=== PATIENT | male | born 1980 | race Two or more races ===

== ENCOUNTER 2016-11-25 18:05 | Emergency (ER) | payer BC ==
[~2016-11-25] VITALS: Ht 185.4 cm; Wt 129.3 kg
[2016-11-25] MEDS ORDERED: IV NORMAL SALINE 1,000ML 1,000 ML IV SCH (18:40)
[2016-11-25] MEDS ORDERED: ONDANSETRON PF 4 MG/2 ML VIAL. IV ONE (18:45)
[2016-11-25] MEDS ORDERED: 0.9 % SODIUM CHLORIDE 10 ML DISP.SYRIN. IV PRN (18:45)
--- NOTE | 2016-11-25 18:45 | PHYS DOC ---
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 He describes the pain as sharp stabbing waxing and waning. It is worse when he lays down and worse with foods and fluids better when he sits up. The pain would be again became relatively suddenly woke him from sleep he tried use a restroom which was not an issue produced no vomiting or diarrhea at that time but then again a few hours later began to retch. Sent to episode of nonbilious nonbloody vomiting. He's had no fevers no chills feeling sick to his stomach. He admits to no prior experience like this in the past which to no travel outside the country, no recent antibiotics, no sick contacts. Patient does not handle poultry, reptiles, or consume raw foods. Patient has not tried to treat himself with any medications. Patient admits that the pain comes in waves but never completely resolves and presently is a 6 of 10. There is no rash UTI symptoms or trauma associated with this particular complaint. He does drink alcohol on occasion but I'll call was not being seen last night. This patient is a history of hypertension and diabetes Review of Systems Review of Systems Constitutional: Denies fever or chills [] Eyes: Denies change in visual acuity, redness, or eye pain [] HENT: Denies nasal congestion or sore throat [] Respiratory: Denies cough or shortness of breath [] Cardiovascular: No additional information not addressed in HPI [] GI: Planes of diffuse abdominal pain with nausea and vomiting without bloody stools or diarrhea : Denies dysuria or hematuria [] Musculoskeletal: Denies back pain or joint pain [] Integument: Denies rash or skin lesions [] Neurologic: Denies headache, focal weakness or sensory changes [] Endocrine: Denies polyuria or polydipsia [] Allergies Allergies Allergies Coded Allergies Type Severity Reaction Last Updated Verified canagliflozin Allergy Unknown 11/25/16 Yes Physical Exam Physical Exam Vital signs reviewed normal limits. Constitutional: Well developed, well nourished, obese male in no acute distress nontoxic in appearance but obviously uncomfortable. HENT: Normocephalic, atraumatic, bilateral external ears normal, oropharynx moist, no oral exudates, nose normal. [] Eyes: PERRLA, EOMI, conjunctiva normal, no discharge. [] Neck: Normal range of motion, no tenderness, supple, no stridor. [] Cardiovascular:Heart rate regular rhythm, no murmur [] Lungs & Thorax: Bilateral breath sounds clear to auscultation [] Abdomen: He does have hyperactive bowel sounds tenderness in the r left flank without guarding rebound or organomegaly. Ration is no Ferrari's or McBurney's point tenderness palpation chest wall is soft without rash or tenderness to palpation Skin: Warm, dry, no erythema, no rash. [] Back: No tenderness, no CVA tenderness. [] Extremities: No tenderness, no cyanosis, no clubbing, ROM intact, no edema. [] Neurologic: Alert and oriented X 3, [] Psychologic: Patient is mildly anxious Current Patient Data Vital Signs Vital Signs Date Time Temp Pulse Resp B/P (MAP) Pulse Ox O2 Delivery O2 Flow Rate FiO2 11/25/16 18:31 97.6 91 18 100 Room Air Lab Results Laboratory Tests Test 11/25/16 19:10 11/25/16 19:15 Urine Collection Type Unknown Urine Color Yellow Urine Clarity Clear Urine pH 7.5 Urine Specific [place] 1.020 Urine Protein 30 mg/dl (NEG-TRACE) Urine Glucose (UA) Neg mg/dL (NEG) Urine Ketones (Stick) 15 mg/dL (NEG) Urine Blood Neg (NEG) Urine Nitrite Neg (NEG) Urine Bilirubin Neg (NEG) Urine Urobilinogen Dipstick 0.2 mg/dL (0.2 mg/dL) Urine Leukocyte Esterase Neg (NEG) Urine RBC Occ /HPF (0-2) Urine WBC Occ /HPF (0-4) Urine Squamous Epithelial Cells Few /LPF Urine Bacteria 0 /HPF (0-FEW) Urine Mucus Mod /LPF White Blood Count 12.0 x10^3/uL (4.0-11.0) H Red Blood Count 5.23 x10^6/uL (4.30-5.70) Hemoglobin 14.8 g/dL (13.0-17.5) Hematocrit 44.2 % (39.0-53.0) Mean Corpuscular Volume 84 fL (79-100) Mean Corpuscular Hemoglobin 28 pg (25-35) Mean Corpuscular Hemoglobin Concent 34 g/dL (31-37) Red Cell Distribution Width 14.3 % (11.5-14.5) Platelet Count 274 x10^3/uL (140-400) Neutrophils (%) (Auto) 73 % (31-73) Lymphocytes (%) (Auto) 18 % (24-48) L Monocytes (%) (Auto) 7 % (0-9) Eosinophils (%) (Auto) 2 % (0-3) Basophils (%) (Auto) 1 % (0-3) Neutrophils # (Auto) 8.8 x10^3uL (1.8-7.7) H Lymphocytes # (Auto) 2.1 x10^3/uL (1.0-4.8) Monocytes # (Auto) 0.8 x10^3/uL (0.0-1.1) Eosinophils # (Auto) 0.3 x10^3/uL (0.0-0.7) Basophils # (Auto) 0.1 x10^3/uL (0.0-0.2) Sodium Level 137 mmol/L (136-145) Potassium Level 4.3 mmol/L (3.5-5.1) Chloride Level 102 mmol/L (98-107) Carbon Dioxide Level 23 mmol/L (21-32) Anion Gap 12 (6-14) Blood Urea Nitrogen 12 mg/dL (8-26) Creatinine 0.9 mg/dL (0.7-1.3) Estimated GFR (Cockcroft-Gault) 96.6 BUN/Creatinine Ratio 13 (6-20) Glucose Level 166 mg/dL (70-99) H Calcium Level 9.1 mg/dL (8.5-10.1) Total Bilirubin 0.5 mg/dL (0.2-1.0) Aspartate Amino Transferase (AST) 20 U/L (15-37) Alanine Aminotransferase (ALT) 44 U/L (16-63) Alkaline Phosphatase 97 U/L (46-116) Creatine Kinase 81 U/L (39-308) Creatine Kinase MB (Mass) < 0.5 ng/mL (0.0-3.6) Creatine Kinase MB Relative Index 0.6 % (0-4) Troponin I Quantitative < 0.017 ng/mL (0-0.055) Total Protein 7.9 g/dL (6.4-8.2) Albumin 3.7 g/dL (3.4-5.0) Albumin/Globulin Ratio 0.9 (1.0-1.7) L Lipase 107 U/L (73-393) EKG EKG EKG timed 6:49 PM 11/25/2016 demonstrates normal sinus rhythm at this beat of 79. Or 174 which is normal limits patient has a normal QRS 90s milliseconds normal QTC at [address] segment or T-wave inversions consistent with pericardial ischemia or MT at this time. Area some left axis deviation noted on his EKG. Read by Dr. Ventura. [] Radiology/Procedures Radiology/Procedures [] IMAGING REPORT Signed PATIENT: LUIS MOTA ACCOUNT: [id number] : 1980 LOCATION: ER AGE: 36 SEX: M EXAM STATUS: REG ER ORD. PHYSICIAN: MARK VENTURA MD REASON: diffuse abdominal pain left flank PROCEDURE: CT ABDOMEN PELVIS WO CONTRAST CT Abdomen and Pelvis without contrast History: 476198.001 Abdominal pain, left flank pain, nausea and vomiting today. Technique: Noncontrast CT imaging was performed of the abdomen and pelvis. Multiplanar images are reviewed. Exposure: One or more of the following individualized dose reduction techniques were utilized for this examination: 1. Automated exposure control 2. Adjustment of the mA and/or kV according to patient size 3. Use of iterative reconstruction technique. Comparison: None Findings: There is no significant abnormality of the limited visualized lung bases.Accurate evaluation of abdominal visceral organs is limited without intravenous contrast. There is no obvious abnormality of the spleen, liver, or pancreas. Gallbladder is present without obvious intraluminal abnormality by CT. There is no adrenal nodularity. No urolithiasis or hydronephrosis is identified. No significantly enlarged nodes are identified. Accurate evaluation of bowel is limited without oral contrast. There is no significant free air, free fluid, bowel dilatation. Normal appendix is visualized there is spondylosis L5-S1. There is multilevel lumbar neural foramina compromise in part on development basis. There is likely at least mild lateral recess stenosis L4-5. Small sclerotic focus of the left femoral head could be related to a bone island. Impression: 1. There is no hydronephrosis or urolithiasis, no significant acute abnormality identified on this noncontrast exam. 2. There is multilevel lumbar neural foramina compromise in part on a developmental basis. Electronically signed by: Minh Boo MD (11/25/2016 7:10 PM) Course & Med Decision Making Course & Med Decision Making Pertinent Labs and Imaging studies reviewed. (See chart for details) she is vital signs, nursing notes and initial history and physical were reviewed. Patient at approximately 8 or 9 PM abdominal pain is markedly better with fluids antiemetics and pain control here in the emergency department without focal tenderness noted in any particular area of his abdomen. It is no guarding rebound or organomegaly. Reviewed CAT scan with him at bedside and diagnosed without significant surgical, patient on CAT scan. There is no evidence of appendicitis, urinary tract infection, pyelonephritis, pancreatitis, cholecystitis, cholelithiasis, small bowel obstruction, diverticulitis, or kidney stone. Reviewed the completed labs that are back now there is no obvious signs of pancreatitis, patient does not have a white count or left shift patient family that discussed likelihood that this is a nausea and vomiting illness secondary to a virus. I scrubbed determine gastroenteritis to him and I told him our goal is to breath and supportive care. [] Dragon Disclaimer Dragon Disclaimer This chart was dictated in whole or in part using Voice Recognition software in a busy, high-work load, and often noisy Emergency Department environment. It may contain unintended and wholly unrecognized errors or omissions. Departure Departure: Impression: Primary Impression: Abdominal pain Additional Impression: Nausea and vomiting Disposition: 01 HOME, SELF-CARE Condition: IMPROVED Referrals: MITCHEL ARANGO MD (PCP) Patient Instructions: Abdominal Pain (Nonspecific), Nausea and Vomiting, Viral Gastroenteritis Additional Instructions: Diagnoses abdominal pain and nausea and vomiting. There is no evidence of appendicitis at this time but this did not mean that they cannot develop in the future. We talked little bit about gastroenteritis, this could be both a bacterial infection or viral infection we can tell. I will provide supportive care and treatment and have a follow-up with your primary care doctor. Please return for any new or increasing symptoms or feel any questions or concerns that I answered. please return for any blood in her stool blood in her vomit or fever greater than 102.2. please continue to try to hydrate Scripts Ondansetron (ZOFRAN ODT) 8 Mg Tab.rapdis 8 MG PO TID for 7 Days Prov: MARK VENTURA MD 11/25/16 Dicyclomine Hcl (BENTYL) 10 Mg Capsule 1 CAP PO TID, #15 CAP.EC Prov: MARK VENTURA MD 11/25/16 Problem Qualifiers MARK VENTURA MD November 25, 2016 18:45
--- NOTE | 2016-11-25 19:13 | RAD ---
CT Abdomen and Pelvis without contrast History: 068817.001 Abdominal pain, left flank pain, nausea and vomiting today. Technique: Noncontrast CT imaging was performed of the abdomen and pelvis. Multiplanar images are reviewed. Exposure: One or more of the following individualized dose reduction techniques were utilized for this examination: 1. Automated exposure control 2. Adjustment of the mA and/or kV according to patient size 3. Use of iterative reconstruction technique. Comparison: None Findings: There is no significant abnormality of the limited visualized lung bases.Accurate evaluation of abdominal visceral organs is limited without intravenous contrast. There is no obvious abnormality of the spleen, liver, or pancreas. Gallbladder is present without obvious intraluminal abnormality by CT. There is no adrenal nodularity. No urolithiasis or hydronephrosis is identified. No significantly enlarged nodes are identified. Accurate evaluation of bowel is limited without oral contrast. There is no significant free air, free fluid, bowel dilatation. Normal appendix is visualized there is spondylosis L5-S1. There is multilevel lumbar neural foramina compromise in part on development basis. There is likely at least mild lateral recess stenosis L4-5. Small sclerotic focus of the left femoral head could be related to a bone island. Impression: 1. There is no hydronephrosis or urolithiasis, no significant acute abnormality identified on this noncontrast exam. 2. There is multilevel lumbar neural foramina compromise in part on a developmental basis. Electronically signed by: Minh Boo MD (11/25/2016 7:10 PM)
[2016-11-25] MEDS: HYDROmorphone PF 1 MG/ML DISP.SYRIN IV/SQ PRN ×2 (19:33→20:44)
[2016-11-25 19:44] LABS: BASO # 0.1 x10^3/uL (0.0-0.2); BASO % 1 % (0-3); EOS # 0.3 x10^3/uL (0.0-0.7); EOS % 2 % (0-3); HEMATOCRIT 44.2 % (39.0-53.0); HEMOGLOBIN 14.8 g/dL (13.0-17.5); LYMPH # 2.1 x10^3/uL (1.0-4.8); LYMPH % 18 % (24-48); MEAN CORPUSCULAR HEMOGLOBIN 28 pg (25-35); MEAN CORPUSCULAR HGB CONC 34 g/dL (31-37); MEAN CORPUSCULAR VOLUME 84 fL (79-100); MONO # 0.8 x10^3/uL (0.0-1.1); MONO % 7 % (0-9); NEUT # 8.8 x10^3uL (1.8-7.7); NEUT % 73 % (31-73); PLATELET COUNT 274 x10^3/uL (140-400); RED BLOOD COUNT 5.23 x10^6/uL (4.30-5.70); RED CELL DISTRIBUTION WIDTH 14.3 % (11.5-14.5)
[2016-11-25 20:08] LABS: ALBUMIN 3.7 g/dL (3.4-5.0); ALBUMIN/GLOBULIN RATIO 0.9 (1.0-1.7); ALK PHOS 97 U/L (46-116); ALT (SGPT) 44 U/L (16-63); ANION GAP 12 (6-14); AST (SGOT) 20 U/L (15-37); BLOOD UREA NITROGEN 12 mg/dL (8-26); BUN/CREATININE RATIO 13 (6-20); CALCIUM 9.1 mg/dL (8.5-10.1); CARBON DIOXIDE 23 mmol/L (21-32); CHLORIDE 102 mmol/L (98-107); CREATINE KINASE 81 U/L (39-308); CREATININE 0.9 mg/dL (0.7-1.3); GFR 96.6; GLUCOSE 166 mg/dL (70-99); LIPASE 107 U/L (73-393); POTASSIUM 4.3 mmol/L (3.5-5.1); SODIUM 137 mmol/L (136-145); TOTAL BILIRUBIN 0.5 mg/dL (0.2-1.0); TOTAL PROTEIN 7.9 g/dL (6.4-8.2)
[2016-11-25 20:15] LABS: BILIRUBIN,URINE NEG (NEG); CLARITY,URINE CLEAR; COLOR,URINE YELLOW; GLUCOSE,URINE NEG (NEG); NITRITE,URINE NEG (NEG); UROBILINOGEN,URINE 0.2 mg/dL (0.2 mg/dL)
[2016-11-25 20:17] LABS: BACTERIA,URINE 0 /HPF (0-FEW); RBC,URINE OCC /HPF (0-2); SQUAMOUS EPITHELIAL CELL,UR FEW /LPF; WBC,URINE OCC /HPF (0-4)
[2016-11-25] MEDS ORDERED: ONDA8TAB12 PO (20:35)
[2016-11-25] MEDS ORDERED: DICY10CA53 PO (20:35)
[2016-11-25 20:46] VITALS: BP 133/73
--- NOTE | 2016-11-26 06:44 | EKG ---
[address] [address] Test Date: 2016-11-25 Test Time: 18:49:23 Pat Name: LUIS MOTA Department: Room: Gender: M [employer] As[employer]er: MARIA T : 1980 Requested By: MARK VENTURA Order Number: [id number] Reading MD: Drake Prabhakar Measurements Intervals [facility] Rate: 79 P: 29 ME: 174 QRS: 0 QRSD: 90 T: 125 QT: 364 QTc: 418 Interpretive Statements SINUS RHYTHM NON-SPECIFIC ST/T CHANGES Electronically Signed On 11-26-2016 10:44:32 CDT by Drake Prabhakar
== END 2016-11-25 20:48 | disposition home or self-care (01) ==
LOC: ER 18:05
DX: R10.84 Generalized abdominal pain (principal); R11.2 Nausea with vomiting, unspecified; E11.9 Type 2 diabetes mellitus without complications; I10 Essential (primary) hypertension; Z88.8 Allergy status to other drugs, medicaments and biological substances
CPT/HCPCS: 36415; 74176; 80053; 81001; 82553; 83690; 84484; 85027; 93005; 96361; 96374; 96375; 96376; 99285; J1170; J2405; J7030

== ENCOUNTER 2017-04-09 00:09 | Emergency (ER) | payer BC ==
[~2017-04-09] VITALS: Ht 185.4 cm; Wt 129.3 kg
[~2017-04-09 00:09] MED LIST: DICY10CA53 PO; ONDA8TAB12 PO
[2017-04-09 00:10] VITALS: BP 166/117
[2017-04-09] MEDS ORDERED: LIDO:MAALOX 1:1 20 ML SINGLE DOSE ONE (00:20)
--- NOTE | 2017-04-09 00:34 | PHYS DOC ---
Past History Past Medical History: Diabetes, Hypertension Past Surgical History: Other Additional Past Surgical Histo: prior pilonidal cyst Smoking: Non-smoker Alcohol Use: Occasionally Drug Use: None Adult General Chief Complaint Chief Complaint: MUSCLE SPASM/CRAMP [facility] HPI Patient is a 37 year old M who presents with intermittent cramping upper abdominal pain associated with nausea and loose stools. He feels that his symptoms started about 2 days ago. He feels that his symptoms are exacerbated by eating particularly greasy or spicy foods. He has had similar symptoms in the past that were less severe. He denies fevers sweats chills or any other flulike symptoms. He feels that Tums relieve his symptoms. He has been unable to hold down fluids without difficulty. Review of Systems Review of Systems Constitutional: Denies fever or chills [] Eyes: Denies change in visual acuity, redness, or eye pain [] HENT: Denies nasal congestion or sore throat [] Respiratory: Denies cough or shortness of breath [] Cardiovascular: No additional information not addressed in HPI [] GI: Negative except history of present illness : Denies dysuria or hematuria [] Musculoskeletal: Denies back pain or joint pain [] Integument: Denies rash or skin lesions [] Neurologic: Denies headache, focal weakness or sensory changes [] Endocrine: Denies polyuria or polydipsia [] Family History Family History No family history of heart disease. History of liver cancer Current Medications Current Medications Medications reviewed Allergies Allergies Allergies Coded Allergies Type Severity Reaction Last Updated Verified canagliflozin Allergy Unknown 11/25/16 Yes Physical Exam Physical Exam Constitutional: Well developed, well nourished, no acute distress, non-toxic appearance. [] HENT: Normocephalic, atraumatic Eyes: PERRLA, EOMI, conjunctiva normal, no discharge. [] Neck: Normal range of motion, no tenderness, supple, no stridor. [] Cardiovascular:Heart rate regular rhythm, no murmur [] Lungs & Thorax: Bilateral breath sounds clear to auscultation [] Abdomen: Bowel sounds normal, soft, no masses, no pulsatile masses. Generalized abdominal pain worse in the epigastric region Skin: Warm, dry, no erythema, no rash. [] Back: No tenderness, no CVA tenderness. [] Extremities: No tenderness, no cyanosis, no clubbing, ROM intact, no edema. [] Neurologic: Alert and oriented X 3, normal motor function, normal sensory function, no focal deficits noted. [] Psychologic: Affect normal, judgement normal, mood normal. [] Current Patient Data Vital Signs Normal vital signs. Please review nursing documentation for specifics Lab Results Laboratory Tests Test 04/09/17 00:40 White Blood Count 9.5 x10^3/uL (4.0-11.0) Red Blood Count 5.36 x10^6/uL (4.30-5.70) Hemoglobin 15.4 g/dL (13.0-17.5) Hematocrit 45.1 % (39.0-53.0) Mean Corpuscular Volume 84 fL (79-100) Mean Corpuscular Hemoglobin 29 pg (25-35) Mean Corpuscular Hemoglobin Concent 34 g/dL (31-37) Red Cell Distribution Width 14.7 % (11.5-14.5) Platelet Count 296 x10^3/uL (140-400) Neutrophils (%) (Auto) 54 % (31-73) Lymphocytes (%) (Auto) 34 % (24-48) Monocytes (%) (Auto) 7 % (0-9) Eosinophils (%) (Auto) 4 % (0-3) Basophils (%) (Auto) 0 % (0-3) Neutrophils # (Auto) 5.1 x10^3uL (1.8-7.7) Lymphocytes # (Auto) 3.2 x10^3/uL (1.0-4.8) Monocytes # (Auto) 0.7 x10^3/uL (0.0-1.1) Eosinophils # (Auto) 0.4 x10^3/uL (0.0-0.7) Basophils # (Auto) 0.0 x10^3/uL (0.0-0.2) Sodium Level 138 mmol/L (136-145) Potassium Level 3.8 mmol/L (3.5-5.1) Chloride Level 102 mmol/L (98-107) Carbon Dioxide Level 24 mmol/L (21-32) Anion Gap 12 (6-14) Blood Urea Nitrogen 14 mg/dL (8-26) Creatinine 1.0 mg/dL (0.7-1.3) Estimated GFR (Cockcroft-Gault) 85.0 BUN/Creatinine Ratio 14 (6-20) Glucose Level 200 mg/dL (70-99) Calcium Level 9.0 mg/dL (8.5-10.1) Total Bilirubin 0.3 mg/dL (0.2-1.0) Aspartate Amino Transf (AST/SGOT) 18 U/L (15-37) Alanine Aminotransferase (ALT/SGPT) 53 U/L (16-63) Alkaline Phosphatase 109 U/L (46-116) Total Protein 8.3 g/dL (6.4-8.2) Albumin 3.6 g/dL (3.4-5.0) Albumin/Globulin Ratio 0.8 (1.0-1.7) Lipase 213 U/L (73-393) EKG EKG [] Radiology/Procedures Radiology/Procedures US Gallbladder - No acute disease pre radiology report Course & Med Decision Making Course & Med Decision Making Pertinent Labs and Imaging studies reviewed. (See chart for details) Massimo symptoms did improve with IV fluids and supportive care. He was strongly advised to return to the emergency room if he develops new or worsening symptoms. Dragon Disclaimer Dragon Disclaimer This chart was dictated in whole or in part using Voice Recognition software in a busy, high-work load, and often noisy Emergency Department environment. It may contain unintended and wholly unrecognized errors or omissions. Departure Departure: Impression: Primary Impression: Gastroesophageal reflux Disposition: 01 HOME, SELF-CARE Condition: STABLE Referrals: MITCHEL ARANGO MD (PCP) Patient Instructions: Diet for Gastroesophageal Reflux Disease, Adult, Gastroesophageal Reflux Disease, Adult Additional Instructions: Massimo was seen in the emergency department for abdominal pain. No emergency medical condition was found on history or physical exam. He did have normal labs and imaging. He was given IV fluids and medication to manage his symptoms. His findings are most consistent with gastroesophageal reflux disease or GERD. He was given education on diet modifications. He was also given a prescription for an acid medtronics technician and Carafate. Is advised follow-up with his primary care doctor in the next 1-2 weeks for further management. Scripts Sucralfate (CARAFATE) 1 Gm Tablet 1 TAB PO QID for 14 Days, #56 TAB 1 Refill Prov: SKYE LAWTON MD 04/09/17 Omeprazole (OMEPRAZOLE) 20 Mg Capsule.dr 1 CAP PO DAILY for 14 Days, #14 CAP 5 Refills Prov: SKYE LAWTON MD 04/09/17 Problem Qualifiers Primary Impression: Gastroesophageal reflux Esophagitis presence: esophagitis presence not specified Qualified Codes: K21.9 - Gastro-esophageal reflux disease without esophagitis SKYE LAWTON MD Apr 09, 2017 00:34
[2017-04-09] MEDS ORDERED: IV NORMAL SALINE 1,000ML 1,000 ML IV ONE (01:00)
[2017-04-09] MEDS ORDERED: LIDO:MAALOX 1:1 20 ML SINGLE DOSE PO ONE (01:00)
[2017-04-09 01:05] LABS: BASO % 0 % (0-3); EOS # 0.4 x10^3/uL (0.0-0.7); EOS % 4 % (0-3); HEMATOCRIT 45.1 % (39.0-53.0); HEMOGLOBIN 15.4 g/dL (13.0-17.5); LYMPH # 3.2 x10^3/uL (1.0-4.8); LYMPH % 34 % (24-48); MEAN CORPUSCULAR HEMOGLOBIN 29 pg (25-35); MEAN CORPUSCULAR HGB CONC 34 g/dL (31-37); MEAN CORPUSCULAR VOLUME 84 fL (79-100); MONO # 0.7 x10^3/uL (0.0-1.1); MONO % 7 % (0-9); NEUT # 5.1 x10^3uL (1.8-7.7); NEUT % 54 % (31-73); PLATELET COUNT 296 x10^3/uL (140-400); RED BLOOD COUNT 5.36 x10^6/uL (4.30-5.70); RED CELL DISTRIBUTION WIDTH 14.7 % (11.5-14.5); WHITE BLOOD COUNT 9.5 x10^3/uL (4.0-11.0)
[2017-04-09 01:14] LABS: ALBUMIN 3.6 g/dL (3.4-5.0); ALBUMIN/GLOBULIN RATIO 0.8 (1.0-1.7); POTASSIUM 3.8 mmol/L (3.5-5.1); TOTAL BILIRUBIN 0.3 mg/dL (0.2-1.0); TOTAL PROTEIN 8.3 g/dL (6.4-8.2)
[2017-04-09] MEDS ORDERED: KETOROLAC 30 MG/ML VIAL. ONE (02:09)
[2017-04-09] MEDS ORDERED: KETOROLAC 30 MG/ML VIAL. IV ONE (02:15)
--- NOTE | 2017-04-09 02:22 | RAD ---
INDICATION: RUQ PAIN
COMPARISON: None. TECHNIQUE: Grayscale and color ultrasound images obtained through the abdomen. FINDINGS: Aorta/IVC: Poorly seen Pancreas: Poorly seen Liver: Echogenic Gallbladder: Partially contracted. No definite gallstones seen. Common Bile Duct: Not dilated. Right Kidney: No hydronephrosis. IMPRESSION: Partially contracted gallbladder without bile duct dilation. Liver is echogenic. Nonspecific but can be seen with fatty infiltration. Electronically signed by: Jordin Hayes MD (04/09/2017 2:19 AM) [facility]
[2017-04-09] MEDS ORDERED: SUCR1TAB35 PO (02:29)
[2017-04-09] MEDS ORDERED: OMEP20CA9 PO (02:29)
== END 2017-04-09 02:40 | disposition home or self-care (01) ==
LOC: ER 00:09
DX: K21.9 Gastro-esophageal reflux disease without esophagitis (principal); I10 Essential (primary) hypertension; E11.9 Type 2 diabetes mellitus without complications; Z88.8 Allergy status to other drugs, medicaments and biological substances
CPT/HCPCS: 36415; 76705; 80053; 83690; 85025; 96361; 96374; 99285; J1885; J7030

== ENCOUNTER 2018-09-29 16:27 | Emergency (ER) | payer BC ==
[~2018-09-29] VITALS: Ht 185.4 cm; Wt 129.3 kg
[~2018-09-29 16:27] MED LIST changes: +OMEP20CA9 PO; +SUCR1TAB35 PO
--- NOTE | 2018-09-29 17:00 | PHYS DOC ---
Past History Past Medical History: Diabetes, Hypertension Past Surgical History: Other Additional Past Surgical Histo: prior pilonidal cyst Smoking: Non-smoker Alcohol Use: Occasionally Drug Use: None Adult General Chief Complaint Chief Complaint: Neck Pain HPI HPI 38-year-old male presents with right shoulder blade pain, right neck pain, right hand tingling. The patient is an intermittent pain in his neck and shoulder blade for a few weeks. He presented to his PCP today who advised he come to the emergency room. His PCP is out of the office. The patient tells me this round of pain started on Friday after he woke up. It persisted throughout the day Friday. The patient did go play softball on Friday. Yesterday and today the pain has continued and now when he turns his head the wrong way or extends it, he gets a tingling sensation in the right hand. He has not had this before. Patient denies any weakness. Review of Systems Review of Systems Constitutional: Denies fever or chills [] Eyes: Denies change in visual acuity, redness, or eye pain [] HENT: Denies nasal congestion or sore throat [] Respiratory: Denies cough or shortness of breath [] Cardiovascular: No additional information not addressed in HPI [] GI: Denies abdominal pain, nausea, vomiting, bloody stools or diarrhea [] : Denies dysuria or hematuria [] Musculoskeletal: Cervical pain, right shoulder blade pain[] Integument: Denies rash or skin lesions [] Neurologic: Denies headache, focal weakness or sensory changes [] Endocrine: Denies polyuria or polydipsia [] All other systems were reviewed and found to be within normal limits, except as documented in this note. Allergies Allergies Allergies Coded Allergies Type Severity Reaction Last Updated Verified canagliflozin Allergy Unknown 11/25/16 Yes Physical Exam Physical Exam Constitutional: Well developed, well nourished, no acute distress, non-toxic appearance. [] HENT: Normocephalic, atraumatic, bilateral external ears normal, oropharynx moist, no oral exudates, nose normal. [] Eyes: PERRLA, EOMI, conjunctiva normal, no discharge. [] Neck: Normal range of motion, no tenderness, supple, no stridor. [] Cardiovascular:Heart rate regular rhythm, no murmur [] Lungs & Thorax: Bilateral breath sounds clear to auscultation [] Abdomen: Bowel sounds normal, soft, no tenderness, no masses, no pulsatile masses. [] Skin: Warm, dry, no erythema, no rash. [] Back: Right-sided paraspinal muscle spasm and tenderness.[] Extremities: No tenderness, no cyanosis, no clubbing, ROM intact, no edema. [] Neurologic: Alert and oriented X 3, normal motor function, normal sensory function, no focal deficits noted. [] Psychologic: Affect normal, judgement normal, mood normal. [] EKG EKG [] Radiology/Procedures Radiology/Procedures [] Impressions: Indication: Neck discomfort. TECHNIQUE: Multiple views of the cervical spine COMPARISON: None FINDINGS: Cervical spine demonstrates loss of normal cervical lordosis. This could be due to muscle spasm or positioning. Atlantoaxial joint interval is preserved. No compression deformities. Small anterior ridging osteophytes seen at C5-C6 and C6-C7. Facet joints are in normal anatomic alignment without arthropathy. Prevertebral soft tissues within normal limits. Visualized lung apices are clear. IMPRESSION: Evidence of onset of degenerative disc disease at C5-C6 and C6-C7. Electronically signed by: Mckinley Jones DO (09/29/2018 5:36 PM) [facility] DICTATED AND SIGNED BY: MCKINLEY JONES DO DATE: 09/29/181735 CC: CHRISSY RAI DO; SKYE DUNCAN MD ~ Examination: 2 views of the right shoulder HISTORY: History of right shoulder pain or discomfort COMPARISON: None available. FINDINGS: The humerus head is within the glenoid. There is no acute fracture or dislocation identified. IMPRESSION: No acute osseous findings. Electronically signed by: Jason Vogt MD (09/29/2018 5:44 PM) [facility] DICTATED AND SIGNED BY: JASON VOGT MD DATE: 09/29/181743 CC: CHRISSY RAI DO; SKYE DUNCAN MD ~ Course & Med Decision Making Course & Med Decision Making Pertinent Labs and Imaging studies reviewed. (See chart for details) Patient has some degenerative change at the C5-C6 as well as a C6-C7 areas. I suspect the patient's symptoms are due to a bulging or herniated disc. I have given him Toradol IM in the ED. I will discharge him with [place] 5/325 as well as a 10 day course of prednisone. I have advised that he follow-up with his primary care physician and consider MRI. He is stable for discharge at this time. [] Dragon Disclaimer Dragon Disclaimer This electronic medical record was generated, in whole or in part, using a voice recognition dictation system. Departure Departure: Impression: Primary Impression: Cervical disc disorder at C5-C6 level with radiculopathy Additional Impression: Cervical disc disorder at C6-C7 level with myelopathy Disposition: 01 HOME, SELF-CARE Condition: STABLE Referrals: SKYE DUNCAN MD (PCP) Patient Instructions: Degenerative Disk Disease Scripts Prednisone (PREDNISONE) 10 Mg Tablet 10 MG PO UD for PREDNISONE TAPER, #30 TAB 0 Refills Take 4 tablets by mouth once a day for 3 days, then take 3 tablets by mouth once a day for 3 days, then take 2 tablet by mouth once a day for 3 days, then take 1 tablet by mouth daily x 3 days, then stop. Prov: CHRISSY RAI DO 09/29/18 Hydrocodone Bit/Acetaminophen (NOR[place] 5-325 TABLET) 1 Each Tablet 1 TAB PO PRN Q6HRS PRN for PAIN, #14 TAB 0 Refills Prov: CHRISSY RAI DO 09/29/18 Problem Qualifiers CHRISSY RAI DO Sep 29, 2018 17:00
--- NOTE | 2018-09-29 17:39 | RAD ---
Indication: Neck discomfort. TECHNIQUE: Multiple views of the cervical spine COMPARISON: None FINDINGS: Cervical spine demonstrates loss of normal cervical lordosis. This could be due to muscle spasm or positioning. Atlantoaxial joint interval is preserved. No compression deformities. Small anterior ridging osteophytes seen at C5-C6 and C6-C7. Facet joints are in normal anatomic alignment without arthropathy. Prevertebral soft tissues within normal limits. Visualized lung apices are clear. IMPRESSION: Evidence of onset of degenerative disc disease at C5-C6 and C6-C7. Electronically signed by: Mckinley Jones DO (09/29/2018 5:36 PM) [facility]
--- NOTE | 2018-09-29 17:47 | RAD ---
Examination: 2 views of the right shoulder HISTORY: History of right shoulder pain or discomfort COMPARISON: None available. FINDINGS: The humerus head is within the glenoid. There is no acute fracture or dislocation identified. IMPRESSION: No acute osseous findings. Electronically signed by: Jason Vogt MD (09/29/2018 5:44 PM) [facility]
[2018-09-29] MEDS ORDERED: KETOROLAC 60 MG/2 ML VIAL. IM ONE (18:00)
[2018-09-29] MEDS ORDERED: PRED-220 PO (18:06)
[2018-09-29] MEDS ORDERED: HYDR-3165 PO (18:06)
[2018-09-29 18:24] VITALS: BP 158/78
== END 2018-09-29 18:25 | disposition home or self-care (01) ==
LOC: ER 16:27
DX: M50.122 Cervical disc disorder at C5-C6 level with radiculopathy (principal); M50.123 Cervical disc disorder at C6-C7 level with radiculopathy; M25.511 Pain in right shoulder; E11.9 Type 2 diabetes mellitus without complications; I10 Essential (primary) hypertension; Z88.8 Allergy status to other drugs, medicaments and biological substances
CPT/HCPCS: 72040; 73030; 96372; 99283; J1885

== ENCOUNTER 2021-06-21 14:54 | Emergency (ER) | payer BC ==
[~2021-06-21] VITALS: Ht 185.4 cm; Wt 125.6 kg
[~2021-06-21 14:54] MED LIST changes: +HYDR-3165 PO; +OMEP20CA16 PO; -OMEP20CA9 PO; +PRED-220 PO
[2021-06-21] MEDS ORDERED: LABETALOL 20 MG/4 ML DISP.SYRIN. IVP ONE (15:45)
--- NOTE | 2021-06-21 15:50 | PHYS DOC ---
Past History Past Medical History: Hypertension (ANDREW MYLES APRN) Past Surgical History: Gastric Bypass, Other Additional Past Surgical Histo: prior pilonidal cyst (ANDREW MYLES APRN) Smoking: Non-smoker Alcohol Use: None Drug Use: None (ANDREW MYLES APRN) Adult General Chief Complaint Chief Complaint: HYPERTENSION HPI HPI Patient is a male with previous history of hypertension who presents to the ED today from Dr. Schmid's office. Patient states he had gone to the doctor's office to be evaluated for ear pain and sore throat which has been going on for 3 to 4 days. He states while at the doctor's office they took his blood pressure which was elevated and he had an abnormal EKG and was sent to the ED. He states he used to be on lisinopril but 4 years ago had gastric sleeve, he states he lost a lot of weight and was taken off blood pressure medicines. He states he never followed up with a doctor after that. Patient denies any chest pain or shortness of breath. Reports several family members have similar symptoms. He states he does not believe he is COVID19. He states he was vaccinated diagnosed COVID19. (ANDREW MYLES [employer]IVER BOX TOE) Review of Systems Review of Systems Constitutional: Denies fever or chills [] Eyes: Denies change in visual acuity, redness, or eye pain [] HENT: Reports sore throat and bilateral ear pain, denies nasal congestion Respiratory: Denies cough or shortness of breath [] Cardiovascular: Reports high blood pressure and abnormal EKG GI: Denies abdominal pain, nausea, vomiting, bloody stools or diarrhea [] : Denies dysuria or hematuria [] Musculoskeletal: Denies back pain or joint pain [] Integument: Denies rash or skin lesions [] Neurologic: Denies headache, focal weakness or sensory changes [] All other systems were reviewed and found to be within normal limits, except as documented in this note. (ANDREW MYLES APRN) Current Medications Current Medications Current Medications Medications (Trade) Dose Ordered Sig/Aiden Start Time Stop Time Status Last Admin Dose Admin Labetalol HCl (Normodyne) 10 mg 1X ONCE 06/21/21 15:45 06/21/21 15:46 UNV (ANDREW MYLES [employer]IVER BOX TOE) Allergies Allergies Allergies Coded Allergies Type Severity Reaction Last Updated Verified canagliflozin Allergy Unknown 11/25/16 Yes (ANDREW MYLES [employer] TOE) Physical Exam Physical Exam Constitutional: Well developed, well nourished, no acute distress, non-toxic appearance. [] HENT: Normocephalic, atraumatic, bilateral external ears normal, oropharynx moist, no oral exudates, nose normal. Bilateral TM are mildly injected, mild erythema to posterior pharynx Eyes: PERRLA, EOMI, conjunctiva normal, no discharge. [] Neck: Normal range of motion, no tenderness, supple, no stridor. [] Cardiovascular:Heart rate regular rhythm, no murmur [] Lungs & Thorax: Bilateral breath sounds clear to auscultation [] Abdomen: Bowel sounds normal, soft, no tenderness, no masses, no pulsatile masses. [] Skin: Warm, dry, no erythema, no rash. [] Back: No tenderness, no CVA tenderness. [] Extremities: No tenderness, no cyanosis, no clubbing, ROM intact, no edema. [] Neurologic: Alert and oriented X 3, normal motor function, normal sensory function, no focal deficits noted. [] Psychologic: Affect normal, judgement normal, mood normal. [] (ANDREW MYLES Kimberly [employer] TOE) Current Patient Data Vital Signs Vital Signs Date Time Temp Pulse Resp B/P (MAP) Pulse Ox O2 Delivery O2 Flow Rate FiO2 06/21/21 15:32 98.0 110 18 197/117 (143) 99 Room Air (ANDREW MYLES [employer]IVER [employer]OX TOE) EKG EKG [address] Collado sinus tachycardia heart rate 107 inverted T waves in aVR, aVL, V2, V5, V6. No STEMI similar T wave inversions noted on EKG done on November 25, 2016 though more pronounced right now. [] [address] Collado sinus rhythm heart rate 98 inverted T waves in aVR, aVL, V2, V5, V6. No STEMI similar T wave inversions noted on EKG done on November 25, 2016 though more pronounced right now. [] (AMIAlexisANDREW Kimberly [employer] TOE) Heart Score C/O Chest Pain: N/A Risk Factors: Risk Factors: DM, Current or recent (<one month) smoker, HTN, HLP, family history of CAD, obesity. Risk Scores: Risk Factors: DM, Current or recent (<one month) smoker, HTN, HLP, family history of CAD, obesity. (ANDREW MYLES APRN) Course & Med Decision Making Course & Med Decision Making Pertinent Labs and Imaging studies reviewed. (See chart for details) This is a 41-year-old male patient presenting to the ED today from the doctor's office to be evaluated for high blood pressure and abnormal EKG. Patient went to the doctor's office for ear pain and sore throat. Blood pressure on arrival to the ED was 191 over 117 with a heart rate of 107. EKG with sinus rhythm and noted for inverted T waves which are more pronounced but have been in the previous EKG CBC no acute findings, CMP noted for glucose of 214, normal anion gap, normal CO2. Patient was discharged to home. He was restarted on lisinopril and instructed to follow-up with PCP next week. Also provided insurance verification rep for the EKG T inversions follow-up. Amoxicillin for otitis media. (ANDREW MYLES APRN) Dragon Disclaimer Dragon Disclaimer This electronic medical record was generated, in whole or in part, using a voice recognition dictation system. (ANDREW MYLES APRN) Departure Departure: Impression: Primary Impression: Accelerated hypertension Additional Impressions: Hyperglycemia Otitis media Acute pharyngitis Disposition: HOME / SELF CARE / HOMELESS Condition: STABLE Referrals: SKYE DUNCAN MD (PCP) follow up in one week CHACORTA ROBERSON MD follow up in one week Patient Instructions: Hyperglycemia, Hypertension, Otitis Media, Adult Additional Instructions: You were evaluated in the emergency room, your blood pressure was high. We restarted you on lisinopril. Take it as prescribed. Your blood glucose is also running high at 214. Follow up with your primary care doctor. We also provided you a insurance verification rep to follow-up with. Come back to the ED at any point symptoms worsen Scripts Amoxicillin (AMOXICILLIN) 875 Mg Tablet 1 TAB PO BID, #14 TAB Prov: ANDREW MYLES APRN 06/21/21 Lisinopril (LISINOPRIL) 10 Mg Tablet 1 TAB PO DAILY, #14 TAB 5 Refills Prov: ANDREW MYLES APRN 06/21/21 Attending Signature Attending Signature I have participated in the care of this patient and I have reviewed and agree with all pertinent clinical information above including history, exam, and recommendations. (FRAN ANTONIO MD) Problem Qualifiers Additional Impressions: Otitis media Otitis media type: other nonsuppurative Chronicity: acute Laterality: bilateral Recurrence: non-recurrent Qualified Codes: H65.193 - Other acute nonsuppurative otitis media, bilateral Acute pharyngitis Pharyngitis/tonsillitis etiology: unspecified etiology Qualified Codes: J02.9 - Acute pharyngitis, unspecified ANDREW MYLES APRN Jun 21, 2021 15:50 FRAN ANTONIO MD Jun 22, 2021 21:04
--- NOTE | 2021-06-21 16:10 | EKG ---
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
[2021-06-21 17:23] VITALS: BP 169/113
[2021-06-21 17:57] LABS: CALCIUM 8.9 mg/dL (8.5-10.1); GFR 83.2
[2021-06-21 17:58] LABS: BASO # 0.1 x10^3/uL (0.0-0.2); BASO % 1 % (0-3); EOS # 0.3 x10^3/uL (0.0-0.7); EOS % 4 % (0-3); HEMATOCRIT 42.6 % (39.0-53.0); HEMOGLOBIN 14.1 g/dL (13.0-17.5); LYMPH # 2.5 x10^3/uL (1.0-4.8); LYMPH % 33 % (24-48); MEAN CORPUSCULAR HEMOGLOBIN 29 pg (25-35); MEAN CORPUSCULAR HGB CONC 33 g/dL (31-37); MEAN CORPUSCULAR VOLUME 87 fL (79-100); MONO # 0.6 x10^3/uL (0.0-1.1); MONO % 9 % (0-9); NEUT % 53 % (31-73); PLATELET COUNT 266 x10^3/uL (140-400); RED BLOOD COUNT 4.89 x10^6/uL (4.30-5.70); RED CELL DISTRIBUTION WIDTH 13.8 % (11.5-14.5); WHITE BLOOD COUNT 7.6 x10^3/uL (4.0-11.0)
[2021-06-21 18:08] LABS: ALBUMIN 3.6 g/dL (3.4-5.0); ALBUMIN/GLOBULIN RATIO 0.8 (1.0-1.7); MAGNESIUM 2.2 mg/dL (1.8-2.4); TOTAL BILIRUBIN 0.3 mg/dL (0.2-1.0); TOTAL PROTEIN 8.2 g/dL (6.4-8.2)
[2021-06-21] MEDS ORDERED: LISI10TA16 PO (18:37)
--- NOTE | 2021-06-21 18:38 | EKG ---
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
[2021-06-21] MEDS ORDERED: AMOX875T PO (18:59)
[2021-06-21] MEDS ORDERED: cloNIDine HCL 0.1 MG TABLET PO ONE (19:15)
[2021-06-21 20:25] LABS: BILIRUBIN,URINE NEG (NEG); CLARITY,URINE CLEAR; COLOR,URINE YELLOW; GLUCOSE,URINE 500 mg/dL (NEG); NITRITE,URINE NEG (NEG); UROBILINOGEN,URINE 0.2 mg/dL (0.2 mg/dL)
[2021-06-21 20:26] LABS: BACTERIA,URINE 0 /HPF (0-FEW); SQUAMOUS EPITHELIAL CELL,UR FEW /LPF; WBC,URINE RARE /HPF (0-4)
== END 2021-06-21 19:09 | disposition home or self-care (01) ==
LOC: ER 14:54
DX: I10 Essential (primary) hypertension (principal); H65.193 Other acute nonsuppurative otitis media, bilateral; J02.9 Acute pharyngitis, unspecified; R73.9 Hyperglycemia, unspecified; Z98.84 Bariatric surgery status; Z88.8 Allergy status to other drugs, medicaments and biological substances
CPT/HCPCS: 36415; 80053; 81001; 83735; 84484; 85025; 93005; 96374; 99284; J3490